=== PATIENT | female | born 1985 | race Caucasian/White ===

== ENCOUNTER 2022-01-18 20:12 | Emergency (ER) | payer SELFPAY ==
[2022-01-18 21:00] LABS: BASOPHIL 0.5 % (0-2); EOSINOPHIL 0.7 % (0-5); HCT 46.5 % (37.0-47.0); HGB 15.5 g/dl (12.5-16.0); MCH 30.3 pg (25.0-31.0); MCHC 33.3 g/dL (32.0-36.0); MCV 90.8 fL (78.0-100.0); MONOCYTE 7.4 % (0-12); MPV 10.8 fL (6.0-9.5); NEUTROPHIL 34.2 % (41-80); NRBC 0; PLT 199 K/uL (150-400); RBC 5.12 M/uL (4.20-5.40); RDW 12.4 % (11.5-14.0)
[2022-01-18 21:13] LABS: ALBUMIN 4.1 g/dL (3.4-5.0); BILIRUBIN - TOTAL 0.5 mg/dL (0.2-1.0); CREATININE 0.75 mg/dL (0.51-0.95); GLOBULIN (CALCULATION) 3.7 g/dL; POTASSIUM 2.7 mmol/L (3.5-5.1); TOTAL PROTEIN 7.8 g/dL (6.4-8.2)
[2022-01-18 21:15] LABS: CORONAVIRUS 2019 SARS-COV-2 POSITIVE (NEGATIVE)
[2022-01-18 21:57] LABS: INFLUENZA A NAA NEGATIVE (NEGATIVE)
[2022-01-18 21:59] LABS: BILIRUBIN 1+ mg/dL (NEGATIVE); BLOOD 1+ Ery/uL (NEGATIVE); CLARITY CLEAR (CLEAR); COLOR YELLOW (YELLOW); GLUCOSE (U) NORMAL (NORMAL); LEUKOCYTES NEGATIVE Leu/uL (NEGATIVE); NITRITE NEGATIVE (NEGATIVE); PROTEIN TRACE (LOW) mg/dL (NEGATIVE); SPECIFIC GRAVITY >=1.030 (1.001-1.030); UROBILINOGEN 0.2 mg/dL (0.2-1.0)
[2022-01-18 22:09] LABS: MUCOUS MODERATE
[2022-01-18] MEDS ORDERED: KEFLEX250 MG PO (23:18)
[2022-01-18] MEDS ORDERED: DIFLUCAN 100MG100 MG PO (23:18)
[2022-01-18] MEDS ORDERED: PAXLOVID 300-11 EACH PO (23:18)
== END 2022-01-18 23:50 | disposition home or self-care (01) ==
LOC: FER 20:12
PROVIDERS: Emergency Medicine
DX: U07.1 COVID-19 (principal); I45.10 Unspecified right bundle-branch block; F17.290 Nicotine dependence, other tobacco product, uncomplicated
CPT/HCPCS: 36415; 80053; 81001; 85025; 93005; J2405; J7030; U0002